=== PATIENT | male | born 1950 | race Caucasian/White ===

== ENCOUNTER 2017-09-30 11:21 | Inpatient (IN) ==
[2017-09-30] MEDS ORDERED: DILTIAZEM 50 MG/10 ML VIAL IV STA (11:31)
[2017-09-30] MEDS ORDERED: SODIUM CHLORIDE 0.9% 100 ML IV ONE (11:37)
[2017-09-30] MEDS ORDERED: DILTIAZEM 100 MG VIAL.ADD IV ONE (11:38)
[2017-09-30] MEDS ORDERED: ONDANSETRON 4 MG/2 ML VIAL ONE (11:40)
[2017-09-30] MEDS ORDERED: SODIUM CHLORIDE 0.9% 500 ML IV STA (11:55)
[2017-09-30] MEDS: DILTIAZEM INJ 100 MG in SODIUM CHLORIDE 0.9% 100 ML IV SCH ×2 (11:55→23:32)
[2017-09-30 11:59] LABS: Basophils # 0.1 10*3/uL (0.0-0.2); Basophils % 1.2 % (0.0-0.8); Eosinophils # 0.2 10*3/uL (0.0-0.87); Eosinophils % 4.2 % (0.00-10.9); Hemoglobin 16.2 GM/DL (14.0-18.0); Immature Granulocytes % 0.2 %; Immature Granulocytes Absolute 0.01 #; Lymphocytes # 1.1 10*3/uL (1.4-4.0); Lymphocytes % 22.1 % (21.2-54.2); Mean Corpuscular HGB Conc 35.2 GM/DL (32-36); Mean Corpuscular Hemoglobin 36 PG (27-34); Mean Corpuscular Volume 100.9 FL (87-102); Mean Platelet Volume 11.3 FL (9.6-12.0); Monocytes # 0.4 10*3/uL (0.11-0.8); Monocytes % 7.6 % (1.7-12.7); Neutrophils # 3.2 10*3/uL (1.4-7.4); Neutrophils % 64.7 % (38.7-73.9); Platelet Count 71 T/CUMM (130-400); Red Blood Count 4.56 MC/CUMM (3.8-5.5); Red Cell Distribution Width 12.9 % (9.3-17.3)
[2017-09-30 12:15] LABS: INR 1.3; PT Patient Result 13.3 SECS; Partial Thromboplastin Time 30.5 SECS (0-40)
[2017-09-30 12:36] LABS: Albumin 2.5 G/DL (3.4-5.0); Bilirubin,Total 5.7 MG/DL (0.2-1.0); Calcium 8.4 MG/DL (8.5-10.1); Osmolality,Calculated 284.8 MOS/KG (273-304); Thyroid Stimulating Hormone 1.94 uIU/ml (0.358-3.74); Total Protein 6.8 G/DL (6.4-8.3)
[2017-09-30] MEDS ORDERED: LACTULOSE 20 GM/30 ML UDCUP PO STA (13:17)
[2017-09-30] MEDS ORDERED: MAGNESIUM SULF RIDER 2 GM in PREMIX 1 EACH IV STA (13:24)
[2017-09-30 15:09] LABS: Anisocytosis Slight; Platelet Estimate Decreased; Polychromasia Slight
[2017-09-30] MEDS ORDERED: LACTULOSE 20 GM/30 ML UDCUP PO PRN (15:15)
[2017-09-30 16:06] LABS: Albumin 2.4 G/DL (3.4-5.0); Bilirubin,Direct 1.81 MG/DL (0.0-0.20); Bilirubin,Indirect 3.6 MG/DL (0.0-1.0); Bilirubin,Total 5.4 MG/DL (0.2-1.0)
[2017-09-30] MEDS: GABAPENTIN 600 MG TABLET PO SCH (21:00)
[2017-09-30] MEDS: PANTOPRAZOLE 40 MG TABLET PO SCH (21:01)
[2017-09-30] MEDS: BUDESONIDE/FORMOTEROL 160-4.5 INHALER 6 GM INH SCH (21:02)
[2017-10-01 05:29] LABS: Apearance,Urine Slightly Hazy (Clear); Blood, Urine Moderate mg/dL (Negative); Glucose,Urine (UA) Negative (Negative); Hyaline Casts,Urine 55 /LPF (0-3); Ketones,Urine Negative (Negative); Mucus,Urine Many /LPF (Occasional); Nitrite,Urine Negative (Negative); Protein,Urine 30 MG/DL; RBC,Urine 5 /HPF (0-4); Urine Color Amber (Yellow); Urine Specific Gravity 1.024 (1.001-1.035)
[2017-10-01 05:31] LABS: Bilirubin,Urine Small mg/dL (Negative)
[2017-10-01 05:57] LABS: Basophils # 0.1 10*3/uL (0.0-0.2); Basophils % 1.1 % (0.0-0.8); Eosinophils # 0.3 10*3/uL (0.0-0.87); Eosinophils % 4.8 % (0.00-10.9); Hematocrit 37.1 VOL% (42.0-52.0); Immature Granulocytes % 0.2 %; Immature Granulocytes Absolute 0.01 #; Lymphocytes # 1.2 10*3/uL (1.4-4.0); Lymphocytes % 21.8 % (21.2-54.2); Mean Corpuscular Hemoglobin 35 PG (27-34); Monocytes # 0.5 10*3/uL (0.11-0.8); Monocytes % 9.1 % (1.7-12.7); Neutrophils # 3.6 10*3/uL (1.4-7.4); Platelet Count 58 T/CUMM (130-400); Red Blood Count 3.71 MC/CUMM (3.8-5.5); Red Cell Distribution Width 13.2 % (9.3-17.3); White Blood Count 5.6 T/CUMM (4-12)
[2017-10-01] MEDS: MAGNESIUM SULF RIDER 2 GM in PREMIX 1 EACH IV PRN (06:14)
[2017-10-01 06:19] LABS: Albumin 2.3 G/DL (3.4-5.0); Bilirubin,Total 3.9 MG/DL (0.2-1.0); Calcium 7.8 MG/DL (8.5-10.1); Osmolality,Calculated 283.3 MOS/KG (273-304); Potassium 3.7 MMOL/L (3.5-5.1); Total Protein 5.6 G/DL (6.4-8.3)
[2017-10-01 07:13] LABS: Hepatitis A Ab IgM Quant 0.23 Index; Hepatitis A Ab IgM Result Negative (Negative); Hepatitis B Core IgM Quant < 0.05 Index; Hepatitis B Core IgM Result Negative (Negative); Hepatitis B Surface Ag Quant 0.22 Index; Hepatitis B Surface Ag Result Negative (Negative); Hepatitis C Virus Ab Quant > 11.00 Index; Hepatitis C Virus Ab Result Positive (Negative)
[2017-10-01] MEDS: IPRATROPIUM 500 MCG/2.5 ML NEB RESP TX SCH ×4 (08:52→19:29)
[2017-10-01] MEDS: FUROSEMIDE 20 MG TABLET PO SCH (09:50)
[2017-10-01] MEDS: BUDESONIDE/FORMOTEROL 160-4.5 INHALER 6 GM INH SCH ×2 (09:50→20:57)
[2017-10-01] MEDS: GABAPENTIN 600 MG TABLET PO SCH ×3 (09:50→20:54)
[2017-10-01] MEDS: PANTOPRAZOLE 40 MG TABLET PO SCH ×2 (09:50→20:54)
[2017-10-01] MEDS: METOPROLOL SUCCINATE XL 25 MG TABLET PO SCH (09:51)
[2017-10-01] MEDS: RIFAXIMIN 550 MG TABLET PO SCH ×2 (09:52→20:56)
[2017-10-01] MEDS ORDERED: ONDANSETRON 4 MG TABLET PO PRN (10:34)
[2017-10-01] MEDS: LACTULOSE 20 GM/30 ML UDCUP PO SCH ×2 (13:31→18:03)
[2017-10-01] MEDS: DILTIAZEM INJ 100 MG in SODIUM CHLORIDE 0.9% 100 ML IV SCH (13:33)
[2017-10-02] MEDS: LACTULOSE 20 GM/30 ML UDCUP PO SCH ×4 (00:35→18:06)
[2017-10-02 04:44] LABS: Basophils # 0.1 10*3/uL (0.0-0.2); Basophils % 0.9 % (0.0-0.8); Eosinophils # 0.2 10*3/uL (0.0-0.87); Eosinophils % 2.8 % (0.00-10.9); Hematocrit 37.8 VOL% (42.0-52.0); Hemoglobin 12.9 GM/DL (14.0-18.0); Immature Granulocytes % 0.5 %; Immature Granulocytes Absolute 0.03 #; Lymphocytes % 15.7 % (21.2-54.2); Mean Corpuscular HGB Conc 34.1 GM/DL (32-36); Mean Corpuscular Hemoglobin 35 PG (27-34); Mean Corpuscular Volume 103.8 FL (87-102); Mean Platelet Volume 11.6 FL (9.6-12.0); Monocytes # 0.5 10*3/uL (0.11-0.8); Monocytes % 8.1 % (1.7-12.7); Neutrophils # 4.6 10*3/uL (1.4-7.4); Platelet Count 54 T/CUMM (130-400); Red Blood Count 3.64 MC/CUMM (3.8-5.5); White Blood Count 6.4 T/CUMM (4-12)
[2017-10-02 05:19] LABS: Albumin 2.3 G/DL (3.4-5.0); Bilirubin,Total 2.6 MG/DL (0.2-1.0); Calcium 8.7 MG/DL (8.5-10.1); Osmolality,Calculated 279.5 MOS/KG (273-304); Potassium 3.9 MMOL/L (3.5-5.1); Total Protein 5.7 G/DL (6.4-8.3)
[2017-10-02 07:27] LABS: Band Neutrophils 1 % (0-10); Eosinophils 4 % (0-10); Hypochromasia 1+; Lymphocytes 22 % (20-55); Macrocytosis Slight; Nucleated Red Blood Cells 1 (0-5); Segmented Neutrophils 68 % (50-85); Total Cells Counted 100
[2017-10-02 07:28] LABS: Platelet Estimate Decreased
[2017-10-02] MEDS: IPRATROPIUM 500 MCG/2.5 ML NEB RESP TX SCH ×4 (08:04→20:03)
[2017-10-02] MEDS: DILTIAZEM INJ 100 MG in SODIUM CHLORIDE 0.9% 100 ML IV SCH (09:42)
[2017-10-02] MEDS: PANTOPRAZOLE 40 MG TABLET PO SCH ×2 (09:43→20:52)
[2017-10-02] MEDS: FUROSEMIDE 20 MG TABLET PO SCH (09:43)
[2017-10-02] MEDS: GABAPENTIN 600 MG TABLET PO SCH ×3 (09:43→20:53)
[2017-10-02] MEDS: METOPROLOL SUCCINATE XL 25 MG TABLET PO SCH (09:43)
[2017-10-02] MEDS: RIFAXIMIN 550 MG TABLET PO SCH ×2 (09:44→20:53)
[2017-10-02] MEDS: BUDESONIDE/FORMOTEROL 160-4.5 INHALER 6 GM INH SCH ×2 (09:45→20:53)
[2017-10-02] MEDS ORDERED: MAGNESIUM SULF RIDER 4 GM in PREMIX 1 EACH IV PRN (09:58)
[2017-10-02] MEDS ORDERED: MAGNESIUM SULF RIDER 2 GM in PREMIX 1 EACH IV PRN (09:58)
[2017-10-02] MEDS ORDERED: METOPROLOL SUCCINATE XL 100 MG TABLET PO SCH (10:30)
[2017-10-02] MEDS: MAGNESIUM SULF RIDER 2 GM in PREMIX 1 EACH IV PRN (11:36)
[2017-10-02] MEDS: ASCORBIC ACID 500 MG TABLET PO SCH ×2 (11:40→20:52)
[2017-10-02] MEDS: METOPROLOL SUCCINATE XL 50 MG TABLET PO SCH (11:40)
[2017-10-02] MEDS: SPIRONOLACTONE 25 MG TABLET PO SCH (11:40)
[2017-10-02] MEDS: APIXABAN 5 MG TABLET PO SCH ×2 (11:40→20:52)
[2017-10-03] MEDS: LACTULOSE 20 GM/30 ML UDCUP PO SCH ×2 (00:10→06:20)
[2017-10-03 05:34] LABS: Basophils # 0.1 10*3/uL (0.0-0.2); Basophils % 0.8 % (0.0-0.8); Eosinophils # 0.3 10*3/uL (0.0-0.87); Eosinophils % 4.4 % (0.00-10.9); Hematocrit 35.9 VOL% (42.0-52.0); Hemoglobin 12.6 GM/DL (14.0-18.0); Immature Granulocytes % 0.3 %; Immature Granulocytes Absolute 0.02 #; Lymphocytes # 1.1 10*3/uL (1.4-4.0); Lymphocytes % 16.8 % (21.2-54.2); Mean Corpuscular HGB Conc 35.1 GM/DL (32-36); Mean Corpuscular Hemoglobin 36 PG (27-34); Mean Corpuscular Volume 101.7 FL (87-102); Mean Platelet Volume 11.7 FL (9.6-12.0); Monocytes # 0.5 10*3/uL (0.11-0.8); Monocytes % 7.6 % (1.7-12.7); Neutrophils # 4.5 10*3/uL (1.4-7.4); Neutrophils % 70.1 % (38.7-73.9); Red Blood Count 3.53 MC/CUMM (3.8-5.5); Red Cell Distribution Width 13.2 % (9.3-17.3); White Blood Count 6.4 T/CUMM (4-12)
[2017-10-03 05:38] LABS: Platelet Count 52 T/CUMM (130-400)
[2017-10-03 06:13] LABS: Hypochromasia 1+; Ovalocytes Slight; Platelet Estimate Decreased
[2017-10-03 06:14] LABS: Macrocytosis Slight
[2017-10-03 06:18] LABS: Potassium 4.4 MMOL/L (3.5-5.1)
[2017-10-03 06:20] LABS: Calcium 8.3 MG/DL (8.5-10.1)
[2017-10-03 06:22] LABS: Osmolality,Calculated 277.5 MOS/KG (273-304)
[2017-10-03 06:27] LABS: Potassium 4.4 MMOL/L (3.5-5.1)
[2017-10-03 06:29] LABS: Calcium 8.3 MG/DL (8.5-10.1)
[2017-10-03 06:32] LABS: Albumin 2.2 G/DL (3.4-5.0)
[2017-10-03 06:35] LABS: Osmolality,Calculated 277.5 MOS/KG (273-304)
[2017-10-03 06:36] LABS: Bilirubin,Total 2.2 MG/DL (0.2-1.0); Total Protein 5.5 G/DL (6.4-8.3)
[2017-10-03] MEDS: IPRATROPIUM 500 MCG/2.5 ML NEB RESP TX SCH ×2 (08:14→11:50)
[2017-10-03] MEDS: ASCORBIC ACID 500 MG TABLET PO SCH (08:58)
[2017-10-03] MEDS: PANTOPRAZOLE 40 MG TABLET PO SCH (08:58)
[2017-10-03] MEDS: APIXABAN 5 MG TABLET PO SCH (08:58)
[2017-10-03] MEDS: GABAPENTIN 600 MG TABLET PO SCH (08:58)
[2017-10-03] MEDS: METOPROLOL SUCCINATE XL 50 MG TABLET PO SCH (08:58)
[2017-10-03] MEDS: SPIRONOLACTONE 25 MG TABLET PO SCH (08:58)
[2017-10-03] MEDS: RIFAXIMIN 550 MG TABLET PO SCH (08:58)
[2017-10-03] MEDS: BUDESONIDE/FORMOTEROL 160-4.5 INHALER 6 GM INH SCH (09:02)
[2017-10-03 11:42] VITALS: BP 114/72
== END 2017-10-03 12:50 | disposition home or self-care (01) | DRG 433 ==
LOC: N.ED 11:21 → SUATTDRO 15:33 → N.EDINP 15:33 → N.TELEN 17:25
PROVIDERS: ATTEND Internal Medicine